=== PATIENT | female | born 1980 | race Two or more races ===

== ENCOUNTER 2025-06-25 20:43 | Inpatient (IN) | payer OTHER ==
[~2025-06-25] VITALS: Ht 274.3 cm; Wt 72.6 kg
[2025-06-25] MEDS ORDERED: FAMOTIDINE/PF 20 MG/2 ML VIAL IV PUSH STA (21:15)
[2025-06-25] MEDS ORDERED: MORPHINE SULFATE 4 MG/ML CARTRIDGE IV STA (21:15)
[2025-06-25] MEDS ORDERED: KETOROLAC TROMETHAMINE 15 MG VIAL IV STA (21:15)
[2025-06-25] MEDS ORDERED: RINGERS SOLUTION,LACTATED 1,000 ML IV STA (21:15)
[2025-06-25] MEDS ORDERED: ONDANSETRON HCL 2 MG/ML VIAL IV STA (21:15)
[2025-06-25 22:00] LABS: BASO % 0.4 % (0.1-1.2); EOS # 0.07 (0.04-0.54); EOS % 1.0 % (0.7-7.0); LYMPH # 1.67 (1.18-3.74); LYMPH % 23.3 % (19.3-53.1); MEAN PLATELET VOLUME 10.50 fl (9.4-12.4); MONO # 0.80 (0.24-0.82); MONO % 11.1 % (4.7-12.5); NEUT # 4.61 (1.56-6.13); NEUT % 64.2 % (34.0-71.1); RED CELL DISTRIBUTION WIDTH 14.3 % (11.6-14.4)
[2025-06-25] MEDS ORDERED: FAMOTIDINE/PF 20 MG/2 ML VIAL ONE (22:10)
[2025-06-25] MEDS ORDERED: MORPHINE SULFATE 2 MG/ML SYRINGE IV STA (22:10)
[2025-06-25] MEDS ORDERED: ONDANSETRON HCL 2 MG/ML VIAL ONE (22:10)
[2025-06-25] MEDS ORDERED: KETOROLAC TROMETHAMINE 30 MG VIAL ONE (22:10)
[2025-06-25 22:16] LABS: INR 1.13
[2025-06-25] MEDS ORDERED: CIPROFLOXACIN IN 5 % DEXTROSE 200 ML IV SCH (22:18)
[2025-06-25 22:19] LABS: ALT/SGPT 173.0 U/L (12-78); AST/SGOT 97.0 U/L (15-37); BILIRUBIN TOTAL 9.46 mg/dL (0.3-1.2); BILIRUBIN,CONJUGATED 6.0 mg/dL (0.0-0.2); BUN CREA RATIO 6.0 (7.0-25.0); CREATININE SERUM 0.71 mg/dL (0.55-1.02); GFR 90.27; GLOBULINA 3.6 G/DL (2.4-3.5); GLUCOSE FASTING 69.0 mg/dL (65-100); OSMOLALITY SERUM 277.0 MOSM/KG (275-295)
[2025-06-25] MEDS ORDERED: FAMOTIDINE/PF 20 MG in 0.9 % SODIUM CHLORIDE 8 ML IV PUSH SCH (22:19)
[2025-06-25] MEDS ORDERED: MORPHINE SULFATE 2 MG/ML SYRINGE IV PRN (22:30)
[2025-06-25] MEDS ORDERED: RINGERS SOLUTION,LACTATED 1,000 ML IV SCH (22:30)
[2025-06-25] MEDS ORDERED: ONDANSETRON HCL 4 MG in 0.9 % SODIUM CHLORIDE 50 ML IV PRN (22:30)
[2025-06-26 04:59] VITALS: BP 130/90
[2025-06-26 07:35] VITALS: BP 123/78; O2SAT 100
[2025-06-26] MEDS ORDERED: DEXAMETHASONE SODIUM PHOSPHATE 4 MG/ML VIAL ONE (12:11)
[2025-06-26] MEDS ORDERED: IOVERSOL 320 MG/ML - 50 ML VIAL IV ONE (12:52)
[2025-06-26] MEDS ORDERED: SUGAMMADEX SODIUM 200 MG/2 ML VIAL IV ONE (13:23)
[2025-06-26] MEDS ORDERED: METRONIDAZOLE/SODIUM CHLORIDE 500 MG/100 ML PIGGYBACK IV ONE (16:31)
[2025-06-26 17:40] VITALS: BP 125/78; O2SAT 95
[2025-06-27 00:30] VITALS: BP 116/70; O2SAT 98
[2025-06-27 06:44] LABS: BASO % 0.2 % (0.1-1.2); EOS # 0.01 (0.04-0.54); EOS % 0.2 % (0.7-7.0); LYMPH # 0.78 (1.18-3.74); LYMPH % 13.0 % (19.3-53.1); MEAN PLATELET VOLUME 11.30 fl (9.4-12.4); MONO # 0.49 (0.24-0.82); MONO % 8.2 % (4.7-12.5); NEUT # 4.67 (1.56-6.13); NEUT % 78.1 % (34.0-71.1); RED CELL DISTRIBUTION WIDTH 14.2 % (11.6-14.4)
[2025-06-27 07:04] LABS: ALT/SGPT 128.0 U/L (12-78); AST/SGOT 47.0 U/L (15-37); BILIRUBIN TOTAL 2.39 mg/dL (0.3-1.2); BILIRUBIN,CONJUGATED 1.24 mg/dL (0.0-0.2); BUN CREA RATIO 9.0 (7.0-25.0); CREATININE SERUM 0.64 mg/dL (0.55-1.02); GFR 101.76; GLOBULINA 3.2 G/DL (2.4-3.5); GLUCOSE FASTING 89.0 mg/dL (65-100); OSMOLALITY SERUM 280.0 MOSM/KG (275-295)
[2025-06-27 08:41] VITALS: BP 128/64; O2SAT 100
== END 2025-06-27 18:15 | disposition home or self-care (01) | DRG 445 ==
LOC: ER 20:43 → SURG 22:19
PROVIDERS: General Practice; Internal Medicine; Student in an Organized Health Care Education/Training Program; ADMIT Internal Medicine; ATTEND Internal Medicine
PROC: 0DJ08ZZ Inspection of Upper Intestinal Tract, Via Natural or Artificial Opening Endoscopic (ICD-10-PCS; principal; 2025-06-26 10:00)
DX: K80.50 Calculus of bile duct without cholangitis or cholecystitis without obstruction (principal); R17 Unspecified jaundice; R74.8 Abnormal levels of other serum enzymes